=== PATIENT | female | born 1990 | race Caucasian/White ===

== ENCOUNTER 2022-06-25 08:48 | Emergency (ER) | payer MEDICAID ==
[~2022-06-25] VITALS: Ht 154.9 cm; Wt 65.9 kg
[2022-06-25 08:51] VITALS: BP 114/76
[2022-06-25] MEDS ORDERED: ibuprofen 200mg tablet PO ONE (09:10)
== END 2022-06-25 09:35 | disposition home or self-care (01) ==
LOC: ER 08:49
DX: M72.2 Plantar fascial fibromatosis (principal); F17.200 Nicotine dependence, unspecified, uncomplicated; F12.90 Cannabis use, unspecified, uncomplicated
CPT/HCPCS: 99282

== ENCOUNTER 2025-02-20 02:07 | Emergency (ER) | payer MEDICAID, OTHER ==
[~2025-02-20] VITALS: Ht 154.9 cm; Wt 75.0 kg
--- NOTE | 2025-02-20 02:38 | RADIOLOGY REPORT ---
CLINICAL INDICATION: ANKLE PAIN RIGHT TECHNIQUE: DI ANKLE, COMPLETE(3VW MIN) Comparison: None FINDINGS/IMPRESSION: : There is no evidence of acute fracture or dislocation. Soft tissues are unremarkable.
--- NOTE | 2025-02-20 04:23 | Physician Documentation ---
History of Present Illness ~ Chief Complaint: Leg Pain Stated Complaint: ANKLE PAIN S/P FALL Time Seen by MD: 04:23 Primary Medical Doctor: [facility] Patient presents to the emergency room for evaluation of right ankle pain. She tripped over a lip of the threshold of her house causing her to stumble forward and rolled her ankle. Unable to bear weight. Applied ice but no oral pain medication Tetanus witin 5 years: No Medication Reconciliation Allergies: Coded Allergies: No Known Allergies (Unverified , 02/20/25) Past Medical History Past Medical History: No Pertinent History Past Surgical History: noncontributory Alcohol Use: None Drug Use: marijuana Occupation: employed Review of Systems ROS All review of systems negative except as per HPI Physical Exam Vital Signs: Temperature: 97.4, Source: Oral, Heart Rate: 77, Respiratory Rate: 16, BP: 128/89, Pulse Oximetry: 98, Weight: 75.000 Oxygen Flow Rate: 0 Physical Exam General: Patient is awake, alert, oriented x4 in no acute distress Head: Normocephalic and atraumatic. Eyes: Conjunctival normal. EOMI. PERRL. ENT: Mucous membranes moist. Neck: Supple, trachea is midline. Chest: Clear to auscultation bilaterally without rales, rhonchi, or wheezes. There is no accessory muscle use or retractions. Cardiac: RRR without murmurs, gallops, or rubs. Extremities: Left lower extremity normal. Right lower extremity with tenderness to palpation to the lateral malleolus with some mild swelling to the lateral foot. Neurovascularly intact Progress Results/Orders Results/Orders Orders - PAUL DELEON MD Ankle, Complete(3vw Min) (02/20/25 02:23) Completed Orders - PAUL DELEON MD Ankle, Complete(3vw Min) (02/20/25 02:23) Vital Signs 02/20/25 02/20/25 02:09 03:55 Temp 97.4 97.4 Pulse 77 77 Resp 16 16 B/P (MAP) 115/83 128/89 (102) Pulse Ox 99 98 O2 Flow Rate 0 Medical Decision Making Findings Patient presents to the emergency room for evaluation of ankle pain as per HPI. Differentials include but are not limited to fractures, dislocations, soft tissue injury, tendinous rupture therefore x-ray performed which was reassuring. Discussed with the patient the possibility of a missed hairline fracture in the need to have it read performed if no improvement over the next week. She does have a primary care provider. Also instructed that she may need referral if that has any tendinous ruptures. Patient placed in splint with crutches. Rice therapy discussed Departure Disposition: HOME / SELF CARE / HOMELESS Impression: Primary Impression: Ankle sprain Condition: Stable Discharge Instructions: Ankle Sprain Additional Instructions: Ibuprofen and Tylenol may be taken together for pain. Ice may be of help with frostbite precautions. I will provide additional pain medicine should this be needed. If no improvement over the next week follow up with your doctor for repeat x-ray to investigate for cryptic fracture. You may also require referral for advanced imaging to look at soft tissues Referrals: NO PRIMARY CARE PROVIDER (PCP) Prescriptions Hydrocodone Bit/Acetaminophen 5/325 MG ([place] 5/325 MG) 5 Mg/325 Mg Tablet 1 TAB PO Q4-6 hours PRN for pain, #7 TAB Prov: PAUL DELEON MD 02/20/25 Signature Scribe Signature: No scribe Attestation: The note accurately reflects work and decisions made by me.Paul Deleon MD 02/20/25 04:32 PAUL DELEON MD Feb 20, 2025 04:23
[2025-02-20] MEDS ORDERED: HYDR-3965 PO (04:31)
[2025-02-20 04:33] VITALS: BP 128/89; PULSE 68; TEMP 97.4; O2SAT 97
[2025-02-20] MEDS: ibuprofen tablet 400 MG TABLET PO ONE (04:37)
[2025-02-20] MEDS: ondansetron 4mg rapidly disintigrating tab PO ONE (04:37)
[2025-02-20 04:38] VITALS: RESP 16
[2025-02-20] MEDS: HYDROcodone/acetaminophen 5mg/325mg tablet PO ONE (04:38)
== END 2025-02-20 05:04 | disposition home or self-care (01) ==
LOC: ER 02:08
DX: S93.401A Sprain of unspecified ligament of right ankle, initial encounter (principal); W19.XXXA Unspecified fall, initial encounter; Y93.89 Activity, other specified; Y92.89 Other specified places as the place of occurrence of the external cause; Y99.8 Other external cause status
CPT/HCPCS: 29540; 73610; 99284; A6449